=== PATIENT | female | born 1965 | race Caucasian/White ===

== ENCOUNTER → 2016-04-21 | Outpatient (CLI) | payer BC ==
--- NOTE | 2016-04-21 16:15 | US ---
Complete Pelvic Sonography (Transabdominal and Endovaginal) Clinical History: 50-year-old female who has had no normal menstrual periods since July 2015. The pa tient is G0, P0 and is not on hormone replacement therapy or oral contraceptives and has no history o f an IUD or prior pelvic surgery. The patient has had bloating and discomfort since July 2015 with s ome nausea, vomiting, and a feeling of fullness. ICD-10 Diagnostic Code: R14.0. Technique: Initially, a curvilinear 5 MHz transducer was used to sonographically evaluate the pelvis, using a full urinary bladder as a window. To better assess the uterine architecture and the adnexal structures, endovaginal pelvic sonography was also performed. The transitions rn care coordinator indicated the patient w as extremely anxious and uncomfortable with the transvaginal exam; however; she did wish to proceed b ecause she did not want to repeat the exam. The patient herself placed the EV probe. Cine clips are s tored on PACS. Color Doppler and spectral Doppler are used. Comparison Study: None. Findings: Transabdominal Pelvic Sonography: The uterus is retroverted and retroflexed, measuring 7.0 x 3.9 x 4. 1 cm. The endometrium appears normal. Uterine fibroids are suspected; however, will be better assesse d endovaginally. The right and left ovaries appear normal, with intraovarian vascular flow documented . There is no free fluid in the cul-de-sac. Endovaginal Pelvic Sonography: The endometrial thickness is 5.7 mm. There is a posterior midbody intr amural fibroid measuring 1.9 x 1.7 x 1.5 cm, and a pedunculated anterior fundal fibroid measuring 2.2 x 2.3 x 2.6 cm. The right ovary measures 2.3 x 1.3 x 2.2 cm, and the left ovary measures 2.8 x 1.4 x 1.8 cm, and contains a single tiny anechoic follicle which measures 8 x 9 x 12 mm in diameter. Intra ovarian vascular flow is documented. There is no torsion or free fluid. Impression: 1. Retroverted and retroflexed uterus. 2. There are two discrete leiomyomata observed. 3. Normal appearance of the endometrium and ovaries. If there is further clinical concern regarding the patient's symptoms, consider contrast-enhanced CT imaging.
== END ==
LOC: BRMIMAGING 13:32
DX: R14.0 Abdominal distension (gaseous) (principal); D25.1 Intramural leiomyoma of uterus
CPT/HCPCS: 76856-PO

== ENCOUNTER → 2016-05-11 | Outpatient (CLI) | payer BC ==
--- NOTE | 2016-05-11 16:12 | MA ---
Screening Digital Mammogram With iCAD Analysis Clinical Indications: Routine screening. Technique: Standard cephalocaudal projections were obtained. Digital breast tomosynthesis was perform ed in the MLO projection with reconstruction at 1.0-mm slice thickness and composite MLO views recons tructed. This examination was processed by the iCAD computer-aided detection system. Comparison: June 2014, May 2014, May 2009, March 2008. Breast density: Type B; Scattered fibroglandular densities. Findings: CAD was reviewed. No masses, suspicious calcifications or secondary signs of malignancy are seen. There has been no significant change in the appearance of either breast. Impression: Negative mammogram. BI-RADS 1. Recommendation: Routine mammographic screening in one year as long as physical examination is negativ [facility] will send a result letter to the patient. Negative mammography should not preclude additional workup of a clinically suspicious finding. The patient's information is entered into a reminder system with a target due date for her next mammo gram.
== END ==
LOC: FIMAGING 14:35
DX: Z12.31 Encounter for screening mammogram for malignant neoplasm of breast (principal)
CPT/HCPCS: G0202